=== PATIENT | male | born 1940 | race American Indian/Alaskan Native ===

== ENCOUNTER 2019-09-22 10:10 | Day surgery (SDC) | payer MEDICARE ==
[2019-09-22] MEDS ORDERED: WATER FOR IRRIG STERILE 250 ML BOTTLE IR ONE (10:27)
[2019-09-22] MEDS ORDERED: WATER FOR IRRIG STERILE 1,000 ML BOTTLE ONE (10:27)
[2019-09-22] MEDS ORDERED: SODIUM CHLORIDE 0.9% 1000 ML 1,000 ML ONE (11:19)
--- NOTE | 2019-09-22 11:23 | Anesthesia Day of Surgery ---
Anesthesia Day of Surgery - Day of Surgery Patient Examined: Yes Patient H&P Reviewed: Yes Patient is NPO: Yes Cardiac Clearance: Yes
--- NOTE | 2019-09-22 11:23 | Anesthesia Consultation ---
Anesthesia Consult and Med Hx Date of service: 09/22/19 - Airway Anesthetic Teeth Evaluation: Dentures ROM Head & Neck: Adequate Mental/Hyoid Distance: Adequate Mallampati Class: Class II Intubation Access Assessment: Probably Good - Pre-Operative Health Status ASA Pre-Surgery Classification: ASA3 Proposed Anesthetic Plan: MAC - Pulmonary Hx Smoking: No Hx Asthma: No Hx Respiratory Symptoms: No SOB: No COPD: No Home Oxygen Therapy: No Hx Pneumonia: No Hx Sleep Apnea: No - Cardiovascular System Hx Hypertension: Yes Hx Coronary Artery Disease: Yes (AAA. Cardiology monitoring ) Hx Angina: No Hx Percutaneous Transluminal Coronary Angioplasty (PTCA): No Hx Cardia Arrhythmia: No Hx Pacemaker: No Hx Internal Defibrillator: No Hx Valvular Heart Disease: No Hx Heart Murmur: No Hx Peripheral Vascular Disease: No - Central Nervous System Hx Neuromuscular Disorder: No Hx Seizures: No CVA: No Hx Back Pain: No Hx Psychiatric Problems: No - Gastrointestinal Hx Ulcer: No Hx Gastroesophageal Reflux Disease: No - Endocrine Hx Renal Disease: No Hx End Stage Renal Disease: No Hx Cirrhosis: No Hx Liver Disease: No Hx Insulin Dependent Diabetes: No Hx Non-Insulin Dependent Diabetes: No Hx Thyroid Disease: No Hx Hypothyroidism: No Hx Hyperthyroidism: No - Hematic Hx Anemia: No Hx Sickle Cell Disease: No - Other Systems Hx Alcohol Use: No Hx Substance Use: No Hx Cancer: No Hx Obesity: No
[2019-09-22] MEDS ORDERED: PROPOFOL 200 MG/20 ML VIAL IV ONE ×2 (13:04)
--- NOTE | 2019-09-22 13:04 | History and Physical Report ---
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 Last colonoscopy was about 3-4 years back. He is also lately been having hematochezia and has required flexible sigmoidoscopy with banding in the past. In addition, has diverticular disease. MEDICATIONS: Include amlodipine, lisinopril, atorvastatin, clonidine, and fenofibrate. ALLERGIES: He has no known allergies. SOCIAL HISTORY: Denies history of smoking or alcohol use. PAST MEDIAL HISTORY: No cardiac issues. He has had his flu shots. PHYSICAL EXAMINATION: VITAL SIGNS: He is afebrile. Blood pressure 156/72, pulse is 74, height is 5 feet 9 inches, weight is 234 pounds. HEENT: Shows no JVD. LUNGS: Clear to auscultation. CARDIOVASCULAR: Normal. ABDOMEN: Soft. Bowel sounds present. NEUROLOGIC: He is alert and oriented. ASSESSMENT: History of colon polyp of the serrated adenoma type involving the proximal colon, hematochezia secondary to internal hemorrhoids, hypertension, diverticular disease. PLAN: Plan is to do a colonoscopy and a possible flexible sigmoidoscopy with banding to be done at [facility], [place] today. The patient was given Suprep as his prep. JOB# [id number] HECTOR/DIXIE
[2019-09-22] MEDS ORDERED: LIDOCAINE 2% UROJECT 10 ML JELLY ONE (13:44)
--- NOTE | 2019-09-22 13:59 | Procedure Note ---
Date of procedure: 09/22/19 Pre-op diagnosis: Colon Polyp Screening/Hematochezia Post-op diagnosis: other (Hematochezia secondary to Moderate,Internal Hemorrhoid (s/p Banding x 3)/ Minor,External hemorrhoid/ Multiple,Small recto-sigmoid Polyps (possibly Hyperplastic)/Moderate, Proximal Colon Diverticuli) Procedure: Colonoscopy with Biopsy and Flex Sigmoidoscoy with Banding x 3 Anesthesia: MAC Surgeon: EVARISTO SMALL Estimated blood loss: minimal Pathology: list Specimen disposition: to lab Condition: stable Disposition: same day (Treat with analgesic,avoid aspirin and NSAID and anticoagulants for 4 days; otherwise resume home medication. Follow up in 2 weeks ([phone]).)
[2019-09-22] MEDS ORDERED: LIDOCAINE 2% UROJECT 10 ML JELLY UR ONE (14:15)
--- NOTE | 2019-09-22 14:15 | Operative Report ---
PROCEDURE: Flexible sigmoidoscopy with banding. INDICATIONS: A 79-year-old -[place] gentleman with an underlying history of abdominal aortic aneurysm, which was treated with medication. He did develop some PVC during the course of the colonoscopy, but it did not affect his blood pressure or his heart rate and the colonoscopy showed presence of moderate internal hemorrhoids as a source of the patient's hematochezia and multiple small possibly hyperplastic polyps involving the rectosigmoid area as well as moderate colon polyps in the proximal colon. DESCRIPTION OF PROCEDURE: The procedure was done after getting informed consent with MAC anesthesia. The EGD scope with the banding apparatus was then introduced and retroflexed. Three of the largest internal hemorrhoids were then suctioned into the suction channel and was banded. Two of the hemorrhoids had 2 bands applied. A total of 5 bands were applied to 3 internal hemorrhoids. There was minimal to no bleeding associated with the procedure. No complications associated with the procedure. At the end of the procedure, lidocaine gel was smeared on to the banded hemorrhoids, which was applied using a syringe. ASSESSMENT: Hematochezia secondary to internal hemorrhoids, status post banding x 3. PLAN: To encourage the patient to take sitz bath, mineral oil as needed to act as a lubricant. The patient will also be given some analgesics and advised to follow up in the office in 2 weeks' time and to avoid aspirin and aspirin-related products, but use other medications. Procedure was done in the GI lab with assistance of the GI lab team, which included Nikki POLLARD Saundra and with assistance of anesthesia. JOB# [id number] HECTOR/DIXIE
[2019-09-22 14:34] VITALS: BP 143/82
--- NOTE | 2019-09-22 14:41 | Operative Report ---
PROCEDURE: Colonoscopy with biopsy. INDICATIONS: The patient is a 79-year-old -[place] gentleman who had a colonoscopy done about 3-4 years ago. At that time, he was noted to have a serrated adenoma. Colonoscopy was done to make sure there was not any recurrence of any polyps. DESCRIPTION of PROCEDURE: Procedure was done after getting informed consent with MAC anesthesia. Initial rectal exam was unremarkable. Instrument was passed through the rectum onto the cecum, which was identified with ileocecal valve and appendiceal orifice. Visualization was fair during the course of the procedure. The patient did develop some PVC. He has an underlying history of abdominal aortic aneurysm; although, he did have some PVCs during the course of the colonoscopy. There were no changes in his blood pressure or his heart rate. There were several diverticula noted in the proximal colon. The transverse colon and the descending and sigmoid colon showed normal mucosa. There were multiple small polyps noted in the rectosigmoid area, possibly hyperplastic in times that were removed by cold biopsy and the rectum showed moderate internal hemorrhoid on the retroverted view and some mild to moderate and minor external hemorrhoid was also noted during the rectal exam. ASSESSMENT: Hematochezia secondary to moderate internal hemorrhoid. Multiple small rectosigmoid polyps, possibly hyperplastic and proximal colon diverticula. There was some minimal bleeding associated with the polypectomy. No complications associated with the procedure. Plan is to do a flexible sigmoidoscopy and banding of the internal hemorrhoids. The procedure was done in the GI lab with assistance of the GI lab team, which included RN, Nikki Sánchez; Abbie flanagan and with assistance of anesthesia. JOB# [id number] HECTOR/DIXIE
--- NOTE | 2019-09-22 17:00 | Post Anesthesia Evaluation ---
- Post Anesthesia Evaluation Patient Participated: Yes Airway Patent: Yes Stable Respiratory Function: Yes Nausea/Vomiting: No Temp > 96.8F: Yes Pain Manageable: Yes Adequeate Hydration: Yes Anesthesia Complications: No
== END 2019-09-22 14:36 | disposition home or self-care (01) ==
LOC: GIO 10:10
DX: K92.1 Melena (principal); K62.1 Rectal polyp; K57.30 Diverticulosis of large intestine without perforation or abscess without bleeding; K64.4 Residual hemorrhoidal skin tags; K64.8 Other hemorrhoids; I71.01 Dissection of thoracic aorta; I71.03 Dissection of thoracoabdominal aorta; I10 Essential (primary) hypertension; E78.5 Hyperlipidemia, unspecified; I77.72 Dissection of iliac artery; I71.02 Dissection of abdominal aorta; Z98.890 Other specified postprocedural states; Z91.013 Allergy to seafood; Z79.899 Other long term (current) drug therapy; Z86.010 Personal history of colon polyps; Z88.5 Allergy status to narcotic agent
CPT/HCPCS: 45380; 46221; 88305; J2704; J7030